=== PATIENT | female | born 1965 | race Caucasian/White ===

== ENCOUNTER 2022-03-06 13:14 | Outpatient (RCR) | payer BC, SELFPAY | END 2022-03-06 14:16 | disposition home or self-care (01) | PROVIDERS: PCP Family Medicine; Visit Provider Family Medicine | DX: M25.552 Pain in left hip (principal); Z51.89 Encounter for other specified aftercare | CPT/HCPCS: 97110 ==

== ENCOUNTER 2025-06-13 14:21 | Emergency (ER) | payer BC, SELFPAY ==
--- OUTSIDE RECORDS SUMMARY | 2025-06-13 14:23 | XMS_ITS | Clinical Summary ---
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 For routine questions regarding patient records, call [phone] during business hours, M-F 8:00 AM - 5:00 PM Central Time. Record requests for emergency care only can be directed to [phone] at any time.[facility] Allergies Active Allergy Reactions Criticality Noted Date Comments Cefuroxime Rash 10/14/2006 No contraindication to cefazolin for preoperative surgery. Penicillins Hives (Reselect Reaction) 10/14/2006 OK for penicillins except avoid amoxicillin and ampicillin. OK for cephalosporins Medications * This document contains information received from the source organization and may not represent a complete record from that organization. estradiol (CLIMARA) 0.025 mg/[address] 1 patch on the skin 2 (two) times a week. Patient places 1 patch on the skin two times a week (on Mondays and ). New patch just applied Friday08/03/18. 3 8 Active fexofenadine (WILL) 180 mg tablet Take 180 mg by mouth every morning. 0 Active levothyroxine (SYNTHROID, LEVOTHROID) 150 mcg tablet Take 150 mcg by mouth every morning before breakfast. 7 Active Research IRB [id number] curcumin, CURAMED, 750 capsule Take 750 mg by mouth. Active omega-3 fatty acids-fish oil 300-1,000 mg capsule Take 1 capsule (1 g total) by mouth every evening. 9 Active fluticasone (FLONASE) 50 mcg/actuation nasal spray Administer 1 spray into each nostril daily. 16 g 12 9 Active traMADoL (ULTRAM) 50 mg tabletIndicatio ns:Acute Pain Exception Take 1 tablet (50 mg total) by mouth every 6 (six) hours as needed for moderate pain or score 4-6 of 10 or severe pain or score 7-10 of 10 for up to 24 doses Indications: Acute Pain Exception. Take before oxycodone. Use oxycodone for 05/13 breakthrough pain. 24 tablet 1 Active Additional Information Patient not taking.Reported on 09/11/2021 escitalopram (LEXAPRO) 10 mg tablet Take 10 mg by mouth every morning. 1 Active nitrofurantoin monohydrate (MACROBID) 100 mg capsule Take 100 mg by mouth every 12 (twelve) hours. for 5 days 1 Active aspirin 81 mg chewable tablet CHEW AND SWALLOW 1 TABLET BY MOUTH TWO TIMES A DAY WITH MEALS; TAKE TO MINIMIZE RISK OF BLOOD CLOT. WHEN COMPLETE, RESUME USUAL DOSE OF ASPIRIN IF RECOMMENDED BY YOUR PRIMARY PHYSICIAN. 108 tablet 1 Active Additional Information Patient not taking.Reported on 09/11/2021 acetaminophen (TYLENOL) 500 mg tablet TAKE 2 TABLETS BY MOUTH EVERY SIX HOURS FOR 28 DAYS 300 tablet 1 Active celecoxib (CeleBREX) 200 mg capsule TAKE 1 CAPSULE BY MOUTH DAILY 30 capsule 1 Active Active Problems Problem Noted Date Diagnosed Date Post Operative Nausea/Vomiting 07/24/2018 Primary Osteoarthritis Hip Right 03/02/2018 Overview (03/02/2018): Added automatically from request for surgery [id number] Hypothyroidism Gastroesophageal Reflux Disease NOS Arthritis Immunizations Immunization Administration Dates Next Due Td Preservative Free (TENIVAC, DECAVAC) 07/10/20 00 Social History Tobacco Use Types Packs/Day Years Used Date Smoking Tobacco: Never Smokeless Tobacco: Never Alcohol Use Standard Drinks/Week Comments Yes 2 (1 standard drink = 0.6 oz pur e alcohol) Humiliation, Afraid, Rape, and Kick questionnair e Answer Date Recorded Within the last year, have y ou been afraid of your partner or ex-partner? No 09/10/2021 Within the last year, have y ou been humiliated or emotionally abused in other ways by your partner or ex-partner? No Within the last year, have y ou been kicked, hit, slapped, or otherwise physically hurt by your partner or ex-partner? No 09/10/2021 Within the last year, have y ou been raped or forced to have any kind of sexual activity by your partner or ex-partner? No 09/10/2021 Hunger Vital Sign Answer Date Recorded Within the past 12 months, y ou worried that your food would run out before you got the money to buy more. Never true 09/10/19 22 Within the past 12 months, t he food you bought just didn't last and you didn't have money to get more. Never true 09/10/2021 PRAPARE - Transportation Answer Date Re corded In the past 12 months, has l ack of transportation kept you from medical appointments or from getting medications? No 02/2022 In the past 12 months, has l ack of transportation kept you from meetings, work, or from getting things needed for daily living? No 09/10/2021 Housing Stability Vital Sign Answer Patrick e Recorded In the last 12 months, was t here a time when you were not able to pay the mortgage or rent on time? No 09/10/2021 In the last 12 months, how many places have you lived? 1 09/10/2021 In the last 12 months, was t here a time when you did not have a steady place to sleep or slept in a fdc (including now)? No 09/10/2021 Education Answer Date Recorded What is the highest level of school you have completed or the highest degree you have received? 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 Gender Identity Female 03/02/2018 8:41 AM CDT Sexual Orientation Straight 03/02/2018 8: 41 AM CDT Last Filed Vital Signs Vital Sign Reading Time Taken Comments Blood Pressure 110/62 06/05/2021 1:42 PM CDT Pulse 71 06/05/2021 1:42 PM CDT Temperature 36.5 C (97.7 F) 06/05/2021 10:24 AM CDT Respiratory Rate 16 06/05/2021 1:42 PM CDT Oxygen Saturation 99% 06/05/2021 1:42 PM CDT Inhaled Oxygen Concentration - - Weight 72.1 kg (158 lb 15.2 oz) 06/05/2021 5:58 AM CDT Height 174 cm (5' 8.5) 06/05/2021 5:58 AM CDT Body Mass Index 23.81 06/05/2021 5:58 AM CDT Plan of Treatment Health Maintenance Due Date Last Done Comments CT Colonography 1965 Cologuard 1965 FIT 1965 HIV Screening 1965 Hepatitis C Screening 1965 Pneumococcal vaccine (50+ years) (1 of 1 - PCV) 2015 Hepatitis B Vaccines (4 of 4 - Hep B Twinrix 4-dose series) 01/03/2024 01/30/2023, 01/09/2023, 01/02/2023 Depression Screening (Annual PHQ-2) 08/04/2024 Mammogram 03/10/2025 03/10/2024, 0802/2024, 02/06/2023, Additional history exists COVID-19 Vaccine ( season) 2025 06/19/2023, 05/13/2022, 11/15/2021, Additional history exists Influenza Vaccine (#1) 2025 , 06/19/2023, 05/13/2022, Additional history exists Fasting Glucose for Diabetes Screening 12/18/2025 12/18/2022, 06/04/2021, 10/11/2020, Additional history exists Thyroid Stimulating Hormone (TSH) test for thyroid function 03/08/2026 03/08/2025, 03/15/2024, 06/11/2023, Additional history exists Lipid (Cholesterol) Screening 03/15/2029 03/15/2024, 12/18/2022, 11/15/2021, Additional history exists DTaP,Tdap,and Td Vaccines (3 - Td or Tdap) 08/12/2029 08/12/2019, 07/04/2009, 07/10/2000 Colonoscopy 10/24/2030 10/24/2020 Colorectal Cancer Screening 10/24/2030 Zoster Vaccines Completed 08/12/2019, 05/01/2018 IPV Vaccines Aged Out No longer eligi ble based on patient's age to complete this topic Medical Devices Implanted Type Area Patch Machine Operator Device Identifier Shelf Expiration Date Model / Serial / Lot Scrw Pnn Acet Ft 6.5x25 - [id number] Implanted:Qty : 1 on 08/03/2018 by Clyde Hernandez M.D. at [facility] Hardware e.g. pins/screws/ rods Right: Hip Depuy Synthes 02/01/2028 1217-25-5 00 / / [id number] Scrw Pnn Acet Ft 6.5x30 - [id number] Implanted:Qty : 1 on 08/03/2018 by Clyde Hernandez M.D. at [facility] Hardware e.g. pins/screws/ rods Right: Hip Depuy Synthes 06/03/2028 121-30-5 00 / / [id number] Scrw Can Hexhd Ost 6.5x16 - [id number] Implanted:Qty : 1 on 06/05/2021 at [facility] Hardware e.g. pins/screws/ rods Left: Hip Sophia [id number] 07/18/2025 5260-5-01 6 / / [id number] Shll Acet Pnn Mhl Porct 56 - [id number] Implanted:Qty : 1 on 08/03/2018 by Clyde Hernandez M.D. at [facility] Hip Implant Right: Hip Depuy Synthes 06/03/2028 1217-20-0 56 / / [id number] Lnr Alt 0d 36x56 - [id number] Implanted:Qty : 1 on 08/03/2018 by Clyde Hernandez M.D. at [facility] Hip Implant Right: Hip Depuy Synthes 05/03/2023 1221-36-0 56 / / [id number] Hip Stm Smm Sz6 150 - [id number] Implanted:Qty : 1 on 08/03/2018 by Clyde Hernandez M.D. at [facility] Hip Implant Right: Hip Depuy Synthes 02/01/2028 1570-11-1 20 / / [id number] Fem Hd Art Ez Crmc +1.5x36 - [id number] Implanted:Qty : 1 on 08/03/2018 by Clyde Hernandez M.D. at [facility] Hip Implant Right: Hip Depuy Synthes 06/03/2023 1365-36-3 10 / / [id number] Shll Acet Trd Mhl 56 - [id number] Implanted:Qty : 1 on 06/05/2021 at [facility] Hip Implant Left: Hip Toi 12/07/2023 509-02-56 E / / [id number] Osteolock 3.5mm Hex Screw Implanted:Qty : 1 on 06/05/2021 at [facility] Hip Implant Left: Hip Sophia [id number] 10/30/2023 5260-5-02 4 / / [id number] Lnr X3 Karli 36 - [id number] Implanted:Qty : 1 on 06/05/2021 at [facility] Hip Implant Left: Hip Sophia [id number] 09/18/2025 723-00-36 E / / [id number] Hip Stm Scr Sz9 82s172 - [id number] Implanted:Qty : 1 on 06/05/2021 at [facility] Hip Implant Left: Hip Toi 01/16/2026 9901-1691 S / / [id number] Fem Hd Blx Kimberlee +2.5x36 - [id number] Implanted:Qty : 1 on 06/05/2021 at [facility] Hip Implant Left: Hip Toi 12/27/2025 18-3625 / / [id number] Procedures Procedure Name Priority Date/Time Associated Diagnosis Comments BASIC METABOLIC PANEL, S/P Routine 06/04/2021 8:32 AM CDT Primary Osteoarthritis Hip Left from Last 3 Months or Most Recently Relevant to Health Maintenance Results * Basic Metabolic Panel (06/04/2021 8:32 AM CDT) Potassium, S 4.4 3.6 - 5.2 mmol/L 06/04/2021 10:02 AM CDT DTL Sodium, S 141 135 - 145 mmol/L 06/04/2021 10:02 AM CDT DTL Chloride, S 105 98 - 107 mmol/L 06/04/2021 10:02 AM CDT DTL Bicarbonate, S 27 22 - 29 mmol/L 06/04/2021 10:02 AM CDT DTL Anion Gap 9 7 - 15 06/04/2021 10:02 AM CDT DTL BUN (Blood Urea Nitrogen), S 18 6 - 21 mg/dL 06/04/2021 10:02 AM CDT DTL Creatinine 0.72 0.59 - 1.04 mg/dL 06/04/2021 10:02 AM CDT DTL eGFR-Non Black/ >90 >=60 mL/min/BSA 06/04/2021 10:02 AM CDT DTL Comment: ----ADDITIONAL INFORMATION---- Estimated GFR calculated using the 2009 CKD_EPI creatinine equation. eGFR-Black/Afric an Egyptian >90 >=60 mL/min/BSA 06/04/2021 10:02 AM CDT DTL Comment: ----ADDITIONAL INFORMATION---- Estimated GFR calculated using the 2009 CKD_EPI creatinine equation. Calcium, Total, S 9.1 8.6 - 10.0 mg/dL 06/04/2021 10:02 AM CDT DTL Glucose, S 92 70 - 140 mg/dL 06/04/2021 10:02 AM CDT DTL Blood (Blood, Venous) 06/04/2021 8:32 AM CDT 06/04/2021 9:44 AM CDT us Balaji Mukherjee P.A.-C., M.S. LAB BLOOD ADD-ON F inal Result [facility] [address] [place] [address], [place] DTL [facility] [address] [place] [address] from Last 3 Months or Most Recently Relevant to Health Maintenance Insurance [facility] [place] [address] Advance Directives For more information, please contact: [phone] * Full Code (Latest Code Status on File) Date Activated Date Inactivated Comments 06/05/2021 10:03 AM 06/05/2021 4:02 PM Question Answer Comments Full Code: Discussed
--- OUTSIDE RECORDS SUMMARY | 2025-06-13 14:23 | XMS_ITS | Clinical Summary ---
Author Organization [facility] Address [address] [place] [id number] Care Team Providers Care Iridologist Name Role Phone Pushpa Zepeda DO Primary Care Provider [phone] Allergies Active Allergy Reactions Criticality Noted Date Comments Cefuroxime Rash 10/14/2006 Penicillins Medications medication order composer Taking fish oil, unsure of dose 0 05/01/20 18 Active diclofenac topical (VOLTAREN) 1 % gelIndications:Osteoart hritis of metacarpophalangeal (MCP) joint of right middle finger,Arthritis of carpometacarpal (CMC) joint of right thumb Apply 2 g topically to affected area(s) 4 times daily. 200 g 12/11/19 22 Active ferrous sulfate 325 mg (65 mg iron) tabletIndications:Restl ess leg syndrome Take 1 Tablet (325 mg) by mouth once daily with a meal. 90 Tablet 3 03/08/20 25 Active fexofenadine 180 mg tabletIndications:Seaso nal allergies Take 1 Tablet (180 mg) by mouth once daily. 90 Tablet 3 03/08/20 25 Active fluticasone (50 mcg per actuation) nasal solution (FLONASE)Indications:En vironmental allergies SHAKE LIQUID AND USE 1 SPRAY IN EACH NOSTRIL DAILY 48 g 3 03/08/20 25 Active levothyroxine (SYNTHROID) 150 mcg tabletIndications:Hypot hyroidism, unspecified type Take 1 Tablet (150 mcg) by mouth once daily. 90 Tablet 3 03/08/20 25 Active SUMAtriptan (Imitrex) 25 mg tabletIndications:Migra ine without status migrainosus, not intractable, unspecified migraine type Take 1-2 Tablets (25-50 mg) by mouth 2 times daily if needed for Migraine. Max dose: 200mg per 24 hrs. 60 Tablet 1 03/08/20 25 Active estradioL (VAGIFEM) 10 mcg tab vaginal tabletIndications:Postm enopausal atrophic vaginitis 1 tab PV nightly x 2 weeks then 2nights weekly 30 Tablet 3 03/08/20 25 Active citalopram (CELEXA) 20 mg tabletIndications:Hot flashes TAKE 1 TABLET(20 MG) BY MOUTH DAILY IN THE MORNING 90 Tablet 1 03/15/20 25 Active prednisoLONE acetate 1% ophthalmic (ECONOPRED PLUS, PRED FORTE, OMNIPRED) suspension Place 1 Drop into both eyes four times daily. 06/07/20 25 Active predniSONE (DELTASONE) 20 mg tabletIndications:Acute midline low back pain without sciatica 2 tabs daily for 3 days, 1 tab daily for 3 days, and 1/2 tab daily for 4 days. 11 Tablet 06/09/20 25 025 Active cyclobenzaprine (FLEXERIL) 10 mg tabletIndications:Acute midline low back pain without sciatica Take 1 Tablet (10 mg) by mouth at bedtime if needed for Muscle Spasm. This may make you drowsy. 60 Tablet 06/09/20 25 Active Active Problems Problem Noted Date Diagnosed Date Cervical cancer screening 03/17/2025 Overview (03/17/2025): 03/2025 NIL/HPV Negative Plan: HPV-based testing due in 5 years Arthritis of carpometacarpal (CMC) joint of righ t thumb 02/13/2024 Arthritis 01/09/2024 Gastroesophageal reflux disease 01/09/2024 Post-operative nausea and vomiting 07/24/2018 Osteoarthritis of hip 08/11/2017 Overview (01/09/2024): Added automatically from request for surgery [id number] Colon polyp 10/25/2016 Overview (10/25/2020): Colonoscopy 10/2016 large serrated adenoma repeat in 3 years Colonoscopy 10/2020 4 mm adenoma, repeat in 5 years Migraine 08/02/2008 Seasonal allergies 08/02/2008 Unspecified hypothyroidism 07/05/2008 Encounters Date Type Department Care Team Description 06/13/2025 Nurse Triage [facility] [address] [place] [address] Pushpa Zepeda DO Back Pain 06/09/2025 1:25 PM AUDIT TECH Office Visit [facility] [address] [place] [address] Malachi Zhang MD Musculoskeletal Problem (Consultation for Low Back pain & Pelvic Floor Pain that started after lifting suitcase DOI 06/01/2025) 06/09/2025 Travel 05/03/2025 10:00 AM CDT Office Visit [facility] [address] [place] [address] Ludy Barrientos AuD Hearing Problem (Hearing test) 05/02/2025 Travel 04/25/2025 9:40 AM CDT Ancillary Procedure [facility] [address] [place] [address] 04/25/2025 Travel 04/21/2025 Travel 03/13/[address] [place] [address] Pushpa Zepeda DO Refill Request (Citalopram) from Last 3 Months Immunizations Immunization Administration Dates Next Due COVID-19 vaccine (Pfizer-Bio NTech 30mcg/0.3mL) 12YO+ BEREKET-SUCROSE PF, MDV 11/15/2021 COVID-19 vaccine (Pfizer-Bio NTech 30mcg/0.3mL) PF, MDV 07/16/2021,10/26/2020,10/05/2020 HepA-HepB (Twinrix) 01/30/2023,01/09/2023,2022 Influenza Virus, Unspecified 05/04/2019,05/16/20 16 Influenza, CCIIV3 (Age >=6 M O) (Egg Free) 04/13/2024 Influenza, IIV3 (Age >=3 years) 05/23/20 21,05/06/2013,04/16/2012,2010,05/09/2010,06/18/2008,05/26/2007 Influenza, IIV4 07/03/2015 Influenza, IIV4 (=>6mos) MDV 04/23/2018 Influenza,CCIIV4 PRESERV FREE 06/19/2023, 022,04/24/2017 Pneumococcal Conj 20-valent (Prevnar 20) 03/08/2025 Rabavert 01/09/2023,01/02/2023 Td (Age >=7 Years) 08/12/2019 Tdap 07/04/2009 Typhoid (injectable) 01/02/2023 Zoster (Shingrix-RZV, recombinant) 08/12/2019, Family History Medical History Relation Name Comments Heart Disease Father Babatunde [place] 10/2011 Heart failure Father Babatunde Stroke Father Babatunde Thyroid Disease Father Babatunde Diabetes Maternal Grandfather Bishnu Cancer-breast Maternal Grandmother Heidi Cancer Mother Sunshine cervical Good Health Mother Sunshine Heart Disease Paternal Grandfather SAFIA lat e 50's Cancer-ovarian No Family History Relation Name Status Comments Father Babatunde Maternal Grandfather Bishnu Maternal Grandmother Heidi Mother Sunshine Paternal Grandfather Social History Tobacco Use Types Packs/Day Years Used Date Smoking Tobacco: Never Smokeless Tobacco: Never Tobacco Cessation:Counseling Given: Yes Alcohol Use Standard Drinks/Week Comments Yes 4 (1 standard drink = 0.6 oz pur e alcohol) PHQ-2 Answer Date Recorded PHQ-2 TOTAL SCORE 0 03/08/2025 Social Connections Answer Date Recorded Do you often feel lonely or isolated from those around you? 0 03/07/2025 Alcohol Use Answer Date Recorded How often do you have a drink containing alcohol ? 3 07/07/2023 How many drinks containing a lcohol do you have on a typical day when you are drinking? 0 07/07/2023 How often do you have five or more drinks on one occasion? 0 07/07/2023 Financial Resource Strain Answer Date R ecorded Difficulty of Paying Living Expenses 3 03/07/2025 Difficulty of Paying Living Expenses Not on file 03/07/2025 Food Insecurity Answer Date Recorded Do you worry your food will run out before you are able to buy more? 1 03/07/2025 Transportation Needs Answer Date Record ed Does lack of transportation keep you from medica l appointments? 1 03/07/2025 Does lack of transportation keep you from work, meetings or getting things that you need? 1 03/07/2025 Housing Stability Answer Date Recorded What is your housing situation today? 1 03/07/2025 Utilities Answer Date Recorded Do you have trouble paying f or utilities (for example, heat, electricity, water, phone)? 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 Not on file Not on file Not on file Travel History Travel Start Travel End [place] 05/17/2025 05/26/2025 Obstetrics History Para Term AB IAB SAB Ectopic Multiple Livin g Live Births 3 3 2 0 0 0 0 0 1 3 3 Date Outcome GA Total Labor Labor/2nd/3rd Weight Sex Type Anes PTL Jenny A1 A5 Name Clin Term Vag Living Term Vag Living Term Vag Living Para Last Filed Vital Signs Vital Sign Reading Time Taken Comments Blood Pressure 107/72 06/09/2025 1:23 PM AUDIT TECH Pulse 73 06/09/2025 1:23 PM AUDIT TECH Temperature 36.1 C (96.9 F) 07/19/2019 3:07 PM AUDIT TECH Respiratory Rate 13 07/19/2019 3:07 PM AUDIT TECH Oxygen Saturation 97% 06/09/2025 1:23 PM AUDIT TECH Inhaled Oxygen Concentration - - Weight 81.7 kg (180 lb 1.6 oz) 06/09/2025 1:23 P M AUDIT TECH Height 175.3 cm (5' 9) 03/08/2025 11:28 AM CDT Body Mass Index 26.6 03/08/2025 11:28 AM CDT Plan of Treatment Upcoming Encounters Date Type Department Care Team (Late st Contact Info) Description 07/13/2025 10:15 AM AUDIT TECH Appointment [facility] [address] [facility] [place] [address] Tha Waller, PT [address] [place] [address] 07/15/2025 9:05 AM AUDIT TECH Office Visit [facility] [address] [place] [address] Malachi Zhang MD [address] [place] [address] Health Maintenance Due Date Last Done Comments Hepatitis B series for 19+ ( 4 of 4 - Hep B Twinrix 4-dose series) 01/03/2024 01/30/2023, 01/09/2023, 01/02/2023 Influenza Vaccine (#1) 2025 4, 06/19/2023, 05/13/2022, Additional history exists Colonoscopy through age 75 10/24/202510/24, 10/24/2020, 10/23/2016, Additional history exists BMI (ht and wt on same day) for age 18+ 03/08/2026 03/08/2025, 03/15/2024, 12/18/2022, Additional history exists Depression screening for age 12+ 04/25/2026 04/25/2025, 03/08/2025, 03/15/2024, Additional history exists Mammogram for age 45-75 04/25/2026 04/25/20 25, 03/10/2024, 02/06/2023, Additional history exists Tetanus booster 08/12/2029 08/12/2019, 07/04/2009 Lipids for age 45-75 03/08/2030 03/08/2025, 03/15/2024, 12/18/2022, Additional history exists Pap test for age 21-65 03/08/2030 5, 03/08/2025, 08/12/2019, Additional history exists RSV vaccine for adults or (1 - 1-dose 75+ series) 2040 Hepatitis C screening for ag e 18-79 Completed 08/12/2019 Zoster (shingles) series for age 50+ Completed 08/12/2019, 05/01/2018 HIV for age 15-65 Completed 12/18/2022 Pneumococcal series for age 50+ Completed 5 Procedures Procedure Name Priority Date/Time Associated Diagnosis Comments XR MAMMO CHRIS BILAT SCREEN Routine 04/25/2025 10:00 AM CDT Visit for screening mammogram LIPID PANEL W REFLEX MEASURED LDL Routine 03/08/2025 12:51 PM CDT Lipid screening HPV HIGH RISK Routine 03/08/2025 12:35 PM CDT Screening for malignant neoplasm of cervix LC HIV-1/O/2, 4TH GENERATION Routine 12/18/2022 3:47 PM CDT Screening for HIV (human immunodeficiency virus) COLONOSCOPY 10/24/2020 1:40 PM CDT ANTI HCV Routine 08/12/2019 10:54 AM AUDIT TECH Need for hepatitis C screening test from Last 3 Months or Most Recently Relevant to Health Maintenance Results * XR MAMMO CHRIS BILAT SCREEN (04/25/2025 10:00 AM CDT) Anatomical Region Laterality Modality BREASTS, Breast Left, Breast Right Bilateral Mammography Impressions 04/27/2025 7:41 AM CDT There is no radiographic evidence for malignancy. Recommend annual mammograms. MAMMOGRAM ASSESSMENT: ACR 1 Negative PATIENTS: You will also receive a letter with your examination results in an easy to read format. If you have questions about your results, please contact your referring provider. Narrative 04/27/2025 7:41 AM CDT For Patients: As a result of the Century Cures Act, medical imaging exams and procedure reports are released immediately into your electronic medical record. You may view this report before your referring provider. If you have questions, please contact your health care provider. XR MAMMO CHRIS BILAT SCREEN [[id number]] CLINICAL HISTORY: This is an asymptomatic 60 y.o. patient. INDICATION FOR EXAM: Mammogram Screening. TECHNIQUE: CC and MLO views were obtained. This study was evaluated with the assistance of Computer-Aided Detection. Breast Tomosynthesis was used in interpretation. COMPARISON FILM: Yes 03/10/24 [facility] (FIG) 02/06/23 [facility] FINDINGS: The breasts are heterogeneously dense, which may obscure small masses. There are no dominant masses, suspicious micro calcifications or areas of architectural distortion. Pushpa Zepeda DO MAMMO Final Resu lt * (ABNORMAL) LIPID PANEL W REFLEX MEASURED LDL (03/08/2025 12:51 PM CDT) CHOLESTEROL, TOTAL 262(H) <200 mg/dL [facility] HDL CHOLESTEROL 60 > OR = 50 mg/dL [facility] TRIGLYCERIDES 139 <150 mg/dL [facility] LDL-CHOLESTEROL 174(H) mg/dL (calc) [facility] Comment: Reference range: <100 Desirable range <100 mg/dL for primary prevention; <70 mg/dL for patients with CHD or diabetic patients with > or = 2 CHD risk factors. LDL-C is now calculated using the Milady calculation, which is a validated novel method providing better accuracy than the Friedewald equation in the estimation of LDL-C. Grant SALAZAR et al. SANJUANA. 2013;310(19): 6486-1009 (http://education.PushToTest/faq/EKB207) CHOL/HDLC RATIO 4.4 <5.0 (calc) [facility] NON HDL CHOLESTEROL 202(H) <130 mg/dL (calc) [facility] Comment: For patients with diabetes plus 1 major ASCVD risk factor, treating to a non-HDL-C goal of <100 mg/dL (LDL-C of <70 mg/dL) is considered a therapeutic option. Blood BLOOD SPECIMEN / Unknown 03/08/2025 12:51 PM CDT 03/08/2025 12:52 PM CDT Pushpa Zepeda DO CHEMISTRY Final Resu lt Szl [facility] [address] [place] [address], [facility] [address] [place] [address] * HPV HIGH RISK (03/08/2025 12:35 PM CDT) TYPE 16 Negative Negative 03/11/2025 2:30 PM CDT [facility] TYPE 18 Negative Negative 03/11/2025 2:30 PM CDT [facility] OTHER HIGH RISK TYPES Negative Negative 03/11/2025 2:30 PM CDT [facility] Other (Cervical) Non-Blood / Unknown 03/08/2025 12:35 PM CDT 03/09/2025 9:56 AM CDT Narrative [facility] - 03/11/2025 2:30 PM CDT HPV types 16, 18, 31, 33, 35, 39, 45, 51, 52, 56, 58, 59, 66 and 68 DNA were undetectable or below the pre-set threshold. Methodology: Sixto Agnes 4800 HPV Test Pushpa Zepeda DO MICROBIOLOGY Final Resu lt [facility] [address] [place] [address], [place] * LC HIV-1/O/2, 4TH GENERATION (12/18/2022 3:47 PM CDT) Pathologist [facility] HIV Scr 4th Gen Non Reactive Non Reactive 12/24/2022 8:10 AM CDT [facility] Comment: HIV Negative HIV-1/HIV-2 antibodies and HIV-1 p24 antigen were NOT detected. There is no laboratory evidence of HIV infection. Blood BLOOD SPECIMEN / Unknown Venipuncture / Unknown 12/18/2022 3:47 PM CDT 12/18/2022 3:49 PM CDT Narrative [facility] - 12/24/2022 8:10 AM CDT Performed at: [address] [place] [id number] Peanut Blancher: Papito Pierce MD, Phone: [phone] us Pushpa Zepeda DO LABORATORY Final Resu lt [facility] ([facility]) [address] [place] [address], [place] * COLONOSCOPY (10/24/2020 1:40 PM CDT) 10/24/2020 1:40 PM CDT Narrative Transcriptions Grant Temple MD - 10/24/2020 3:05 PM CDT Patient Name: Melba Villeda Procedure Date: 10/24/2020 Gender: Female Date of : 1965 Admit Type: Outpatient Procedure: Colonoscopy Proceduralist: Grant Temple MD , Rosie Burns, RN(Nurse) Indications/Pre-Op Diagnosis: High risk colon cancer surveillance:Personal history of sessile serrated colon polyp (10mm or greater in size), Last colonoscopy: October 2016 Medications: Fentanyl 100 micrograms IV, Midazolam 4 mgIV, (medications documented represent totaldosages for multiple procedures) Procedure Description: The patient had risks, benefits and alternatives explained to andgave informed consent. The patient had a stable cardiopulmonary status and judged an adequate candidate for conscious sedation. The [id number] was passed through the anus and advanced tothe cecum, identified by appendiceal orifice and ileocecal valve. The colonoscopy was performed without difficulty. The patient toleratedthe procedure well. The quality of the bowel preparation was good. The ileocecal valve, appendiceal orifice, and rectum were photographed. Complications: No immediate complications. Estimated Blood Loss & Specimen: Estimated blood loss: none. Specimen collected - Yes and sent to Laboratory Findings: The perianal and digital rectal examinations were normal. A 4 mm polyp was found in the transverse colon. The polyp wassessile. The polyp was removed with a cold snare. Resection and retrieval were complete. A small post polypectomy scar was found in the cecum. The scar tissue was healthy in appearance. There was no evidence of the previouspolyp. The colon (entire examined portion) was moderately redundant. The exam was otherwise without abnormality on direct and retroflexion views. Impressions/Post-Op Diagnosis: - One 4 mm polyp in the transverse colon, removed with a cold snare. Resected and retrieved. - Post-polypectomy scar in the cecum. - Redundant colon. - The examination was otherwise normal on direct and retroflexionviews. Recommendation: - Patient has a contact number available for emergencies. The signsand symptoms of potential delayed complications were discussed with the patient. Return to normal activities tomorrow. Written discharge instructions were provided to the patient. - Resume previous diet. - Continue present medications. - Await pathology results. - Repeat colonoscopy in 5 years for surveillance. Moderate Sedation: Moderate (conscious) sedation was administered by the endoscopy nurse and supervised by the endoscopist. The following parameters were monitored: oxygen saturation, heart rate, respiratory rate, blood pressure, adequacy of pulmonary ventilation and reponse to care. Please refer to the patient's medical record flowsheets and nursing notes for moderate sedation details. Total physician intraservice time was 32 minutes. Grant Temple MD 10/24/2020 3:04:56 PM This report has been signed electronically. Note Initiated On: 10/24/2020 1:40 PM Procedure Code(s): --- Professional --- 46395, Colonoscopy, flexible; with removalof tumor(s), polyp(s), or other lesion(s) bysnare technique Diagnosis Code(s): --- Professional --- Z86.010, Personal history of colonicpolyps K63.5, Polyp of colon Z98.890, Other specified postproceduralstates Q43.8, Other specified congenitalmalformations of intestine CPT copyright 2019 [employer]. All rights reserved. The codes documented in this report are preliminary and upon sound truck operator reviewmay be revised to meet current compliance requirements. Scope In: 2:28:28 PM Scope Withdrawal Time 0 hours 12 minutes 13 seconds Scope Out: 2:57:27 PM us Grant Temple MD PROCEDURE ORD Final Res ult * ANTI HCV (08/12/2019 10:54 AM AUDIT TECH) HEPATITIS C ANTIBODY Non-React gaurav Non-React gaurav 08/12/2019 5:03 PM AUDIT TECH [facility] Comment:Antibodies to HCV no t detected; does not exclude the possibility of exposure to HCV. Blood BLOOD SPECIMEN / Unknown Venipuncture / Unknown 08/12/2019 10:54 AM AUDIT TECH 08/12/2019 10:56 AM AUDIT TECH us Pushpa Zepeda DO SEND OUTS Final [facility]u lt [facility] [address] [place] [address], from Last 3 Months or Most Recently Relevant to Health Maintenance Insurance [facility] Care Teams Iridologist Relationship Specialty Start Date End Date Pushpa Zepdea DO [address] [place] [address] PCP - General Family Practice 06/20/17
[2025-06-13 14:34] VITALS: BP 127/78; PULSE 65; RESP 18; TEMP 36.3; O2SAT 94; BMI 26.1
[2025-06-13 15:42] LABS: Appearance Urine Clear (Clear)
--- NOTE | 2025-06-13 16:11 | ED.GENADULT ---
HPI - General Adult General Time Seen by Provider: 16:11 Date Seen: 06/13/25 Chief complaint: Flank Pain Stated complaint: back/abdominal pain Time Seen by Provider: 06/13/25 16:08 Source: patient Mode of arrival: ambulatory Limitations: no limitations History of Present Illness HPI narrative: 60-year-old female who presents today with back and abdominal pain. patient notes she hurt her back lifting on June 01, since then has had left-sided low back pain that is radiating into the abdomen generally, nausea. Has difficulty standing abdominal history. Pain is worse with movement. Denies urinary symptoms including hematuria, dysuria. Does have some nausea and vomiting. Denies diarrhea constipation. No numbness or tingling in the arms or legs, no bowel or bladder incontinence. Was seen by primary care for this and prescribed prednisone, muscle relaxant which he takes in the evenings, is taking Tylenol and ibuprofen as well. Pain is getting worse and so patient came to emergency. Related Data Home Medications ?Medication ?Instructions ?Recorded ?Confirmed citalopram 20 mg tablet 20 mg PO DAILY 06/13/25 06/13/25 cyclobenzaprine 10 mg tablet 10 mg PO QPM 06/13/25 06/13/25 estradiol 10 mcg vaginal tablet mcg vaginal 06/13/25 ferrous sulfate 325 mg (65 mg mg PO 06/13/25 iron) tablet (FeroSul) fexofenadine 180 mg tablet mg PO 06/13/25 (Allergy Relief (fexofenadine)) fluticasone propionate 50 1 spray intranasal DAILY 06/13/25 06/13/25 mcg/actuation nasal spray,suspension levothyroxine 150 mcg tablet 150 mcg PO DAILY 06/13/25 06/13/25 prednisolone acetate 1 % eye drp ophthalmic (eye) 06/13/25 drops,suspension prednisone 20 mg tablet mg PO 06/13/25 Allergies Allergy/AdvReac Type Severity Reaction Status Date / Time Penicillins Allergy Hives Verified 06/13/25 14:32 PFSH PFSH Social History Smoking Status: Never smoker How often do you have a drink containing alcohol: 2-3 times a week How often do you have six or more drinks on one occasion: Never AUDIT-C Alcohol total score: 3 Non-prescribed substance use: denies use service: No Exam Narrative: Exam Narrative: General: Well-developed and well-nourished, appears uncomfortable Head: Atraumatic and normocephalic Eyes: Pupils are equal reactive, extraocular motions intact, conjunctiva clear ENT: External nose and ears are normal, posterior pharynx without erythema or exudate Neck: No midline cervical tenderness, full spontaneous range of motion the neck, trachea midline, no adenopathy Heart: Regular rate and rhythm no murmurs or thrills Lungs: Clear to auscultation bilaterally without wheezes or crackles Abdomen: mild diffuse abdominal tenderness Musculoskeletal: left low lumbar tenderness Neurologic: Awake, alert, and oriented x3, no gross focal neurologic deficits, cranial nerves intact as tested Psych: Mood and affect are appropriate Skin: No rashes Const: Vital Signs, click to edit/add: Vital Signs - 24 hr 06/13/25 14:34 Temperature 97.4 F L Pulse Rate [Right Pulse Oximeter] 65 Respiratory Rate 18 Blood Pressure [Ri ght Upper Arm] 127/78 Pulse Oximetry 94 Oxygen Delivery Me thod Room Air Course Course ED Course: Reviewed prior record from March 2022 which was brief history for physical therapy after hip replacement. Also reviewed most recent primary care visit from June 09, at that time complaining of low back pain or pelvic pain that started after lifting a suitcase June 01, at that time was prescribed prednisone taper, Tylenol and ibuprofen, Flexeril which she was instructed take only at night. Patient presents today with left-sided low back as well as generalized abdominal pain. this is been going on for about a week and started after lifting injury. No radiation in the legs, is on a prednisone burst and taper as well as muscle relaxant in the evening, Tylenol ibuprofen. No bowel or bladder incontinence. Pain is worse with movement and patient has difficulty standing up straight. On exam here, appears uncomfortable, vital is stable, diffuse mild abdominal tenderness and some left low lumbar tenderness. Symptoms are most consistent with musculoskeletal pain, however possible kidney stone considered. CT abdomen pelvis ordered along with Toradol, Ativan for spasm, and Zofran for nausea. Reevaluation(s) Time of Reevaluation #1: 16:54 Reevaluation #1: CT independently interpreted by me with no evidence of hydronephrosis or hydroureter, no obstructing stone. There is moderate volume stool in the rectum, no evidence of diverticulitis or colitis. Time of Reevaluation #2: 19:06 Reevaluation #2: Patient recheck, we discussed findings and plan, stable for discharge with Tramadol. Continue prednisone, increase Flexeril to three times a day. Physical therapy referral. Vital Signs Vital signs: Initial Vital Signs Temperature 97.4 F L 06/13/25 14:34 Temperature Source Temporal Artery Scan 06/13/25 14:34 Pulse Rate 65 06/13/25 14:34 Respiratory Rate 18 06/13/25 14:34 Blood Pressure 127/78 06/13/25 14:34 Blood Pressure Mean 94 06/13/25 14:34 Blood Pressure Position Sitting 06/13/25 14:34 Pulse Oximetry 94 06/13/25 14:34 Oxygen Delivery Method Room Air 06/13/25 14:34 Vital Signs Temperature 97.4 F L 06/13/25 14:34 Pulse Rate 65 06/13/25 14:34 Respiratory Rate 18 06/13/25 14:34 Blood Pressure 127/78 06/13/25 14:34 Pulse Oximetry 94 06/13/25 14:34 Oxygen Delivery Method Room Air 06/13/25 14:34 Temperature 97.4 F L 06/13/25 14:34 Pulse Rate 65 06/13/25 14:34 Respiratory Rate 18 06/13/25 14:34 Blood Pressure 127/78 06/13/25 14:34 Pulse Oximetry 94 06/13/25 14:34 Oxygen Delivery Method Room Air 06/13/25 14:34 Medications Administered Medications: Discontinued Medications Generic Name Dose Route Start Last Admin Trade Name Freq PRN Reason Stop Dose Admin Sodium Chloride 500 mls @ 500 mls/hr 06/13/25 18:01 06/13/25 18:08 0.9 % Sodium Chloride 500 Ml IV 06/13/25 19:00 500 mls/hr .Q1H ABNER Administration Ketorolac Tromethamine 15 mg 06/13/25 16:20 06/13/25 17:38 Ketorolac 15 Mg/Ml Inj IVP 06/13/25 16:21 15 mg ONCE ONE Administration Lorazepam 0.5 mg 06/13/25 16:20 06/13/25 17:44 Lorazepam 0.5 Mg Tablet PO 06/13/25 16:21 0.5 mg ONCE ONE Administration Ondansetron HCl 4 mg 06/13/25 16:20 06/13/25 17:37 Ondansetron 2 Mg/Ml Inj IVP 06/13/25 16:21 4 mg ONCE ONE Administration Tramadol HCl 50 mg 06/13/25 18:39 06/13/25 18:43 Tramadol Hcl 50 Mg Tablet PO 06/13/25 18:40 50 mg ONCE ONE Administration Medical Decision Making Lab Data Labs: Lab Results 06/13/25 06/13/25 Range/Units 14:45 17:35 WBC 9.04 (4.50-11.00) K/uL RBC 4.31 (4.00-5.20) m/uL Hgb 13.3 (12.0-16.0) gm/dL Hct 41.1 (33.0-51.0) % MCV 95 (80-100) fL MCH 31 (26-34) pg MCHC 32 (32-36) gm/dL RDW Coeff of [place] 12.1 (11.5-15.5) % Plt Count 274 (140-440) K/uL Neut % (Auto) 78.6 H (42.0-72.0) % Lymph % (Auto) 14.7 L (20-44) % [place] % (Auto) 6.2 (0.0-11.0) % Eos % (Auto) 0.2 (0.0-7.0) % Baso % (Auto) 0.2 (0.0-3.0) % Neut # (Auto) 7.10 H (1.7-7.0) K/uL Lymph # (Auto) 1.30 (0.90-2.90) K/uL [place] # (Auto) 0.60 (0.00-0.90) K/UL Eos # (Auto) 0.02 (0.00-0.50) K/uL Baso # (Auto) 0.02 (0.00-0.30) K/uL Abs Immat Gran (auto) 0.01 (0.00-0.30) K/uL Imm/Tot Granulo (auto) 0.1 % Sodium 136 (135-149) mmol/L Potassium 3.9 (3.6-5.1) mmol/L Chloride 96 (96-114) mmol/L Carbon Dioxide 31 (20-32) mmol/L Anion Gap 9 (7-15) mEq/L BUN 17 (7-30) mg/dL Creatinine 0.7 (0.5-1.5) mg/dL Estimated Creat Clear 89.32 Estimated GFR 99 ml/min Glucose 161 H (60-115) mg/dL Calcium 9.0 (8.4-10.6) mg/dL Total Bilirubin 0.5 (0.1-1.5) mg/dL Direct Bilirubin 0.1 (0.0-0.5) mg/dL AST 24 (12-35) U/L ALT 35 (4-35) U/L Alkaline Phosphatase 66 (40-150) U/L Total Protein 7.4 (6.0-8.3) g/dL Albumin 4.2 (3.3-5.0) g/dL Lipase 41 (23-300) U/L Urine Color Yellow (Yellow) Urine Appearance Clear (Clear) Urine pH 5.5 (5.0-8.5) Ur Specific [place] 1.025 (1.000-1.030) Urine Protein Negative (Negative) Urine Glucose (UA) Negative (Negative) Urine Ketones Trace A (Negative) Urine Blood Trace-intact A (Negative) Urine Nitrite Negative (Negative) Urine Bilirubin Negative (Negative) Urine Urobilinogen 0.2 (0.2-1.0) Ur Leukocyte Esterase Negative (Negative) Urine RBC 0-2 (0-2) Urine WBC 0-2 (0-5) Ur Squamous Epith Cells Few (None-Few) Urine Bacteria None (None) Discharge Plan Discharge Clinical Impression: Lumbosacral strain Patient Disposition: Home, Self-Care Condition: Stable Instructions: Low Back Strain (ED) Additional Instructions: Physical therapy clinic will call you to schedule Take Tylenol 1000 mg every 6 hours for 48 hours Take ibuprofen 400 mg every 6 hours for 48 hours Take muscle relaxant every 8 hours Take tramadol as needed Activity Level: Activity as Tolerated Discharge Diet: Regular Prescriptions: No Action cyclobenzaprine 10 mg tablet 10 mg PO QPM prednisone 20 mg tablet PO fexofenadine [Allergy Relief (fexofenadine)] 180 mg tablet PO citalopram 20 mg tablet 20 mg PO DAILY prednisolone acetate 1 % drops,suspension ophthalmic (eye) ferrous sulfate [FeroSul] 325 mg (65 mg iron) tablet PO levothyroxine 150 mcg tablet 150 mcg PO DAILY fluticasone propionate 50 mcg/actuation spray,suspension 1 spray INTRANASAL DAILY estradiol 10 mcg tablet vaginal Follow Up/Referrals: Pushpa Zepeda DO [Primary Care Provider, Family Practice] Stand Alone Forms: [employer] Info Instructions
--- NOTE | 2025-06-13 16:20 | CRLHL7_ITS ---
For Patients: As a result of the Century Cures Act, medical imaging exams and procedure reports are released immediately into your electronic medical record. You may view this report before your referring provider. If you have questions, please contact your health care provider. INDICATION: Left back and abdominal pain, evaluate for ureteral stone TECHNIQUE: CT abdomen and pelvis without contrast. COMPARISON: None. FINDINGS: Lower chest: Unremarkable. Liver: Unremarkable. Gallbladder and bile ducts: No stones or inflammation. No biliary dilatation. Pancreas: Unremarkable. Spleen: Normal in size. No masses. Adrenal glands: Normal in size. No nodules. Kidneys: No hydronephrosis or calculi. Few punctate cortical hypodensities too small to characterize. GI tract: No evidence bowel obstruction or inflammation. Tiny hiatal hernia. Tiny duodenal diverticulum (series 2, image 49). Vasculature: Abdominal aorta is normal in caliber. Minimal atherosclerotic calcifications. Lymph nodes: No lymphadenopathy. Peritoneum/Abdominal Wall: Small fat containing umbilical hernia. No free air or significant free fluid. Pelvis: Limited evaluation secondary to streak artifact from bilateral hip arthroplasties. Region of fat attenuation within the left ovary measuring approximally 1.3 centimeters could reflect small teratoma (series 2, image 99).. Bones: No acute or suspicious osseous abnormality. Partially imaged bilateral total hip arthroplasties. Osseous demineralization. Mild multilevel degenerative changes of the imaged spine. IMPRESSION: No acute findings within the abdomen or pelvis. No hydroureteronephrosis or calculi. Please note that all CT scans at this facility use dose modulation, iterative reconstruction, and/or weight-based dosing when appropriate to reduce radiation dose to as low as reasonably achievable. Dictated by Sidra Alcantar MD @ 06/13/2025 4:49:30 PM (Electronically Signed)
[2025-06-13] MEDS: ONDANSETRON 2 MG/ML inj 4 MG IVP (17:37)
[2025-06-13 17:48] LABS: Hematocrit* 41.1 % (33.0-51.0); Hemoglobin* 13.3 gm/dL (12.0-16.0); Immature Granulocytes Abs Auto 0.01 K/uL (0.00-0.30); Immature Granulocytes Pct Auto 0.1 %; Mean Corpuscular HGB Conc 32 gm/dL (32-36); Mean Corpuscular Hemoglobin 31 pg (26-34); Mean Corpuscular Volume 95 fL (80-100); RDW Coefficient of Variation % 12.1 % (11.5-15.5); Red Blood Count* 4.31 m/uL (4.00-5.20); White Blood Count* 9.04 K/uL (4.50-11.00)
[2025-06-13 18:02] LABS: Albumin* 4.2 g/dL (3.3-5.0); Chloride* 96 mmol/L (96-114); Potassium* 3.9 mmol/L (3.6-5.1); Sodium* 136 mmol/L (135-149)
[2025-06-13 18:05] LABS: Alanine Aminotransferase* 35 U/L (4-35); Alkaline Phosphatase* 66 U/L (40-150); Anion Gap 9 mEq/L (7-15); Aspartate Amino Transferase* 24 U/L (12-35); Bilirubin Direct* 0.1 mg/dL (0.0-0.5); Bilirubin Total* 0.5 mg/dL (0.1-1.5); Blood Urea Nitrogen* 17 mg/dL (7-30); Calcium* 9.0 mg/dL (8.4-10.6); Carbon Dioxide* 31 mmol/L (20-32); Creatinine* 0.7 mg/dL (0.5-1.5); Est. Creatinine Clearance* 89.32; Estimated Glomerular Filt Rate 99 ml/min; Glucose* 161 mg/dL (60-115); Total Protein* 7.4 g/dL (6.0-8.3)
[2025-06-13] MEDS: 0.9 % SODIUM CHLORIDE 500 ML 500 ML IV (18:08)
[2025-06-13] MEDS: TRAMADOL HCL 50 MG TABLET PO (18:43)
[2025-06-13 18:49] LABS: Lymphocytes Absolute Auto 1.30 K/uL (0.90-2.90); Slide Review Reflex No
[2025-06-13] MEDS: DEXAMETHASONE 10 MG/ML PF IVP (19:30)
== END 2025-06-13 19:40 | disposition home or self-care (01) ==
PROVIDERS: Emergency Provider Family Medicine; PCP Family Medicine
DX: S39.012A Strain of muscle, fascia and tendon of lower back, initial encounter (principal); Z88.0 Allergy status to penicillin; X50.0XXA Overexertion from strenuous movement or load, initial encounter; Y93.89 Activity, other specified
CPT/HCPCS: 36415; 74176; 80048; 80076; 81001; 83690; 85025; 96361; 96374; 96375; 99284; 99285; A9270; J1100; J1885; J2405; J7030